=== PATIENT | male | born 1955 | race Caucasian/White ===

== ENCOUNTER 2019-02-01 14:13 | Outpatient (CLI) | payer BC ==
--- NOTE | 2019-02-01 15:27 | HP ---
HISTORY OF PRESENT ILLNESS: Mr. Juarez Aden is a very pleasant 63-year-old gentleman with a past medical history significant for secondary progressive MS, who [facility] pressure ulcerations of the right and left buttock. The patient states that the pressure ulcerations have been present for approximately 1-1/2 years. The patient states that he was seen by Dr. Fiore 2 to 3 weeks ago and at this time, referred to the [facility] for further evaluation and treatment. The patient states that he has utilized Bactroban ointment and ketoconazole 2% in an alternating fashion for the pressure ulcerations of the right and left buttocks. PAST MEDICAL HISTORY: Secondary progressive MS. PAST SURGICAL HISTORY: Negative. MEDICATIONS: Include: 1. Baclofen. 2. Tizanidine. 3. . 4. Zolpidem. 5. Vitamins. ALLERGIES: NO KNOWN DIAGNOSED ALLERGIES. SOCIAL HISTORY: Social history is significant for tobacco use during the patient's early teens. The patient reports the consumption of 3 drinks per week for over 50 years. FAMILY HISTORY: Family history is negative for diabetes mellitus or coronary artery disease. PHYSICAL EXAMINATION: VITAL SIGNS: Temperature 98.1, pulse 61, respirations 19, and blood pressure 127/60. GENERAL: A 63-year-old gentleman, sitting on table in examination room, in no acute distress. HEENT: Normocephalic and atraumatic. NECK: No nuchal rigidity. CHEST: Clear to auscultation. CV: Regular rate and rhythm. ABDOMEN: Soft. EXTREMITIES: No clubbing or cyanosis. BACK: Multiple areas of nonblanchable erythema are present over the right and left buttocks. One of the areas measures approximately 8.5 x 4.0 cm. No open wounds are present over the right or left buttock. One of the areas of nonblanchable erythema is associated with scaling of the skin. ASSESSMENT AND PLAN: 1. Pressure ulcerations of right and left buttocks as stated above. No open wounds are present over the right or left buttock. The patient has been given a prescription for Synalar ointment 0.025% to be applied to the areas of nonblanchable erythema associated with scaling of the skin. The ointment is to be applied after cleansing with Dove soap and water and patting dry. The patient has been told that he may apply the Synalar ointment up to 2 times per day with the second application without cleansing with soap and water. The patient understands and is in agreement with the preceding treatment plan. The patient has been given information in regard to acquiring a Roho cushion. The patient has been instructed to change positions if seated at least every 2 hours. Mr. Aden understands and is in agreement with the preceding treatment plan. He states he will schedule a followup appointment in the [facility] in 2 weeks if the pressure ulcerations fail to respond to treatment with the steroid cream. The patient has been reminded to discontinue mupirocin ointment and ketoconazole while using the Synalar ointment in a consecutive manner for at least 2 weeks. 2. Secondary progressive multiple sclerosis. Job ID: [id number]
[2019-02-01] MEDS ORDERED: Sodium Chloride 0.9% 15 ML NEB ONE (18:00)
== END 2019-02-01 14:14 | disposition home or self-care (01) ==
LOC: WCC 14:13
PROVIDERS: ATTEND Family Medicine
DX: L89.329 Pressure ulcer of left buttock, unspecified stage (principal); L89.319 Pressure ulcer of right buttock, unspecified stage; G35 Multiple sclerosis
CPT/HCPCS: 97602; 99203; A4218; G0463